=== PATIENT | female | born 1950 | race Caucasian/White ===

== ENCOUNTER 2016-06-24 14:53 | Emergency (ER) | payer SELFPAY ==
[2016-06-24 15:17] VITALS: BMI 48.2
[2016-06-24 16:15] VITALS: BP 164/76; PULSE 61; TEMP 97.5
--- NOTE | 2016-06-24 16:15 | DIRPT ---
CLINICAL DATA: 66-year-old female with history of trauma from a fall in the bathroom today complaining of right shoulder and arm pain. EXAM: RIGHT HUMERUS - 2+ VIEW COMPARISON: No priors. FINDINGS: Two views of the right humerus demonstrate a comminuted humeral neck fracture, with displacement and rotation of a fracture fragment from the greater tubercle, which is at least 1.3 cm laterally displaced. Humeral head is located. Distal aspect of the humerus is otherwise intact. IMPRESSION: 1. Comminuted fracture of the right humeral neck with displacement and angulation of a fracture fragment from the greater tubercle. Electronically Signed By: Arnoldo Kim M.D. On: 06/24/2016 16:12
[2016-06-24] MEDS ORDERED: OXYCODONE HCL 5 MG TABLET PO ONE (16:17)
--- NOTE | 2016-06-24 16:17 | DIRPT ---
CLINICAL DATA: Fall with right shoulder pain. Initial encounter. EXAM: RIGHT SHOULDER - 2+ VIEW COMPARISON: None. FINDINGS: Comminuted fracture involving the humeral head and likely also the surgical neck present. There is some displacement of the greater tuberosity. No dislocation. Irregularity involving the glenoid and coracoid process present. This may be degenerative in nature. Subtle scapular fracture is not excluded. Proliferative changes are seen involving the distal acromion and distal clavicle with normal alignment. IMPRESSION: Comminuted fracture involving the proximal right humeral head and neck. Irregularity involving the glenoid and coracoid may be degenerative versus u.s. representative of subtle additional fracture. Electronically Signed By: Oliver Cummings M.D. On: 06/24/2016 16:15
--- NOTE | 2016-06-24 16:20 | EDPRACDOC ---
- General Information Chief Complaint: Fall Stated Complaint: FALL Time Seen by Provider: 06/24/16 16:14 Mode of Arrival: Car Home Medications: Home Medications Oxycodone Immediate Release [Oxy-Ir] 5 mg PO Q6H PRN #30 tab 06/24/16 - History of Present Illness Onset: 1400 HPI: PT STATES SHE LOST HER BALANCE AND FELL IN THE BATHROOM TODAY, COMPLAINS OF PAIN IN RIGHT UPPER ARM, DENIES LOC, NO N/V/D, NO NECK OR BACK PAIN, PT STATES PAIN IS SEVERE, WORSE WITH TRYING TO MOVE HER ARM. Description: Reports: At Rest Location: Reports: Right, Lateral, Anterior Circumstances: Reports: Fall Relevant History: Reports: None Dominant Hand: Right Pain Severity: Severe Able to Move Shoulder?: No Associated Signs & Symptoms: Reports: Arm pain. Denies: Abrasion, Swelling, Numbness, Chest pain, Neck pain, Elbow pain ED Past Medical History - History Reviewed Yes Nurses notes reviewed and agree except as marked - Patient Medical History Cardiac History: Reports: Hypertension GI/ History: Reports: Gastroesophageal Reflux Systemic History: Reports: Diabetes - Social Medical History Smoking Status: Never smoker ETOH: None EDM Review of Systems - Review of Systems Constitutional: negative: Chills, Fever Eyes: negative: Blurred Vision, Double Vision Gastrointestinal: negative: Nausea, Vomiting Neurological: negative: Dizziness, Numbness, Weakness Musculoskeletal: Arm, Shoulder Integumentary: No Symptoms Reported - Physical Exam Constitutional: Alert (Awake), No apparent distress Oriented to: Time, Person, Place Last recorded Vital Signs: Last Vital Signs Temp 97.5 F 06/24/16 16:13 Pulse 61 06/24/16 16:13 Resp 20 06/24/16 16:13 BP 164/76 06/24/16 16:13 Pulse Ox 97 06/24/16 16:13 Oxygen Pulse Oxygen Saturation 97 O2 Device Room Air Oxygen Flow Rate Fraction of Inspired Oxygen ( FIO2) - HEENT Head: Normal ( normocephalic) Neck: Normal (FROM, trachea at midline) - Integumentary Skin: Normal, Warm, Dry Lymphatics: Normal (no adenopathy) - Neurologic Memory Impaired: Normal Motor Function: Normal (Normal tone, Pulses 2+ No cyanosis or edema, FROM) Cranial Nerve: Normal (CN II-X11 intact sensation, strength 5/5) Cerebellar: Normal Mood Description: Normal Perception: Normal ED Shoulder Problem Exam - Musculoskeletal Clavicle: Normal. negative: Swelling, Ecchymosis, Deformity, Tender, Crepitance Shoulder: Limited ROM, Tender. negative: Swelling, Ecchymosis, Deformity, Dislocation Arm: Moderate Tenderness. negative: Swelling, Deformity Distal Function/Circulation: Normal, Capillary Refill. negative: Motor Deficit , Pulse Deficit, Sensory Deficit - Differential Diagnosis Contusion, Dislocation, Humerus fracture/open, Sprain - Diagnostic Imaging RIGHT SHOULDER Image interpreted by: Radiologist RIGHT SHOULDER - 2+ VIEW COMPARISON: None. FINDINGS: Comminuted fracture involving the humeral head and likely also the surgical neck present. There is some displacement of the greater tuberosity. No dislocation. Irregularity involving the glenoid and coracoid process present. This may be degenerative in nature. Subtle scapular fracture is not excluded. Proliferative changes are seen involving the distal acromion and distal clavicle with normal alignment. IMPRESSION: Comminuted fracture involving the proximal right humeral head and neck. Irregularity involving the glenoid and coracoid may be degenerative versus sales representative publications of subtle additional fracture. RIGHT HUMERUS RIGHT HUMERUS - 2+ VIEW COMPARISON: No priors. FINDINGS: Two views of the right humerus demonstrate a comminuted humeral neck fracture, with displacement and rotation of a fracture fragment from the greater tubercle, which is at least 1.3 cm laterally displaced. Humeral head is located. Distal aspect of the humerus is otherwise intact. IMPRESSION: 1. Comminuted fracture of the right humeral neck with displacement and angulation of a fracture fragment from the greater tubercle. Decision Time to Discharge: 16:22 - Departure Disposition: Home Condition: Stable Final Diagnosis: Closed fracture of right proximal humerus Qualifiers: Encounter type: initial encounter Fracture morphology: unspecified fracture morphology Qualified Code(s): S42.201A - Unspecified fracture of upper end of right humerus, initial encounter for closed fracture Instructions: RICE: Routine Care for Injuries Education/Counseling Given To: Patient Education/Counseling Given Regarding: Diagnosis, Treatment, Prognosis, Follow Up Referrals: Getachew Lynne MD [Staff Physician] - One Week Prescriptions: Oxycodone Immediate Release [Oxy-Ir] 5 mg PO Q6H PRN #30 tab PRN Reason: Pain Additional Instructions: WEAR SLING AND SWATHER, APPLY COLD COMPRESSES NEEDED FOR PAIN OR SWELLING, RETURN TO THE ED FOR ANY WORSENING SYMPTOMS OR CONCERNS.
== END 2016-06-24 16:39 | disposition home or self-care (01) ==
LOC: ED 14:53 → EDMC 16:39
DX: S42.201A Unspecified fracture of upper end of right humerus, initial encounter for closed fracture (principal); W19.XXXA Unspecified fall, initial encounter
CPT/HCPCS: 73030; 73060; 99283; J3490